=== PATIENT | female | born 1955 ===

== ENCOUNTER 2023-01-16 05:30 | Day surgery (SDC) | payer OTHER ==
[~2023-01-16] VITALS: Ht 160 cm; Wt 56.7 kg
[~2023-01-16 05:30] MED LIST: SYNTHROID75 MCG PO
[2023-01-16] MEDS ORDERED: NAPR500T14 PO (09:00)
[2023-01-16] MEDS ORDERED: MORGIDOX100 MG PO (09:00)
== END 2023-01-16 12:55 | disposition home or self-care (01) ==
LOC: CIR.AMB 05:30
PROVIDERS: ATTEND Obstetrics & Gynecology
DX: N95.0 Postmenopausal bleeding (principal); N84.0 Polyp of corpus uteri; E03.9 Hypothyroidism, unspecified; Z20.822 Contact with and (suspected) exposure to COVID-19